=== PATIENT | female | born 1990 | race Caucasian/White ===

== ENCOUNTER 2021-03-09 18:44 | Outpatient (CLI) | payer MEDICAID ==
[~2021-03-09] VITALS: Ht 152.4 cm; Wt 96.8 kg
[2021-03-09 19:00] VITALS: BP 114/71
[2021-03-09 19:21] LABS: BILIRUBIN,URINE NEGATIVE (NEGATIVE); CLARITY,URINE CLOUDY; COLOR,URINE YELLOW; GLUCOSE, URINE (UA) NEGATIVE (NEGATIVE); KETONES,URINE NEGATIVE (NEGATIVE); LEUKOCYTE ESTERASE ,URINE NEGATIVE (NEGATIVE); NITRITE,URINE NEGATIVE (NEGATIVE); PROTEIN,URINE NEGATIVE (NEGATIVE)
[2021-03-09 19:28] LABS: BACTERIA,URINE LARGE /HPF; RBC,URINE 0-2 /HPF
[2021-03-09] MEDS ORDERED: ACETAMINOPHEN 500 MG TAB (TYLENOL) PO ONE (19:45)
[2021-03-09] MEDS ORDERED: LIDOCAINE 1% INJ 20 ML 20 ML VIAL INJ ONE (19:45)
[2021-03-09] MEDS ORDERED: cefTRIAXone 1,000 MG VIAL IM ONE (19:45)
[2021-03-09] MEDS ORDERED: ACET-2267 PO (19:50)
[2021-03-09] MEDS ORDERED: PREN-142 PO (19:50)
--- NOTE | 2021-03-10 08:12 | Physician Query-Final Dx ---
Clinic Account Progress/Dx Physician Query: Please give diagnosis Please include # weeks gestation Date of Service Mar 09, 2021 at 18:44 DIVINA HUERTAS Mar 10, 2021 08:12
== END 2021-03-09 20:07 | disposition home or self-care (01) ==
LOC: WSo 18:44 → LDRP 18:45 → WSo 20:07
PROVIDERS: ATTEND Family Medicine
DX: O26.892 Other specified pregnancy related conditions, second trimester (principal); R10.9 Unspecified abdominal pain; Z3A.21 21 weeks gestation of pregnancy
CPT/HCPCS: 81000; 87088

== ENCOUNTER 2021-05-29 07:37 | Outpatient (CLI) | payer MEDICAID ==
[~2021-05-29] VITALS: Ht 152.4 cm; Wt 101.5 kg
[~2021-05-29 07:37] MED LIST: ACET-2267 PO; PREN-142 PO
[2021-05-29 07:52] VITALS: BP 126/67
[2021-05-29 08:41] LABS: BILIRUBIN,URINE NEGATIVE (NEGATIVE); CLARITY,URINE CLEAR; COLOR,URINE YELLOW; GLUCOSE, URINE (UA) NEGATIVE (NEGATIVE); KETONES,URINE NEGATIVE (NEGATIVE); LEUKOCYTE ESTERASE ,URINE NEGATIVE (NEGATIVE); NITRITE,URINE NEGATIVE (NEGATIVE); PROTEIN,URINE NEGATIVE (NEGATIVE)
[2021-05-29 08:52] LABS: BACTERIA,URINE MODERATE /HPF; RBC,URINE RARE /HPF
--- NOTE | 2021-05-30 08:21 | Physician Query-Final Dx ---
ALEKSANDAR,05/30/21 0821: Clinic Account Progress/Dx Physician Query: Please give diagnosis Please include # weeks gestation Date of Service May 29, 2021 at 07:37 GOPAL JONES MD 05/30/21 1500: Clinic Account Progress/Dx DIAGNOSIS: Diagnosis 32 weeks gestation Vaginal pain in ALEKSANDAR,MayMay 30, 2021 08:21 GOPAL JONES MD May 30, 2021 15:00
== END 2021-05-29 10:06 | disposition home or self-care (01) ==
LOC: WSo 07:37 → LDRP 07:39 → WSo 10:06
PROVIDERS: ATTEND Family Medicine
DX: O26.893 Other specified pregnancy related conditions, third trimester (principal); R10.2 Pelvic and perineal pain; Z3A.32 32 weeks gestation of pregnancy
CPT/HCPCS: 81000; 99213

== ENCOUNTER 2021-06-30 05:18 | Outpatient (CLI) | payer MEDICAID ==
[~2021-06-30] VITALS: Ht 152.4 cm; Wt 107.0 kg
[2021-06-30 05:43] VITALS: BP 154/68
[2021-06-30 05:44] VITALS: BP 154/68
[2021-06-30 06:03] LABS: BILIRUBIN,URINE NEGATIVE (NEGATIVE); CLARITY,URINE SL CLOUDY; COLOR,URINE YELLOW; GLUCOSE, URINE (UA) NEGATIVE (NEGATIVE); KETONES,URINE NEGATIVE (NEGATIVE); LEUKOCYTE ESTERASE ,URINE NEGATIVE (NEGATIVE); NITRITE,URINE NEGATIVE (NEGATIVE); PROTEIN,URINE TRACE (NEGATIVE)
[2021-06-30] MEDS ORDERED: D5 LR IV SOLUTION 1,000 ML IV SCH (06:15)
[2021-06-30 06:19] LABS: BACTERIA,URINE MODERATE /HPF; WBC,URINE RARE /HPF
[2021-06-30] MEDS ORDERED: D5 LR IV SOLUTION 1,000 ML IV ONE (06:20)
[2021-06-30] MEDS ORDERED: CEPH500T PO (07:34)
--- NOTE | 2021-07-01 08:19 | Physician Query-Final Dx ---
Clinic Account Progress/Dx Physician Query: Please give diagnosis Please include # weeks gestation Date of Service Jun 30, 2021 at 05:18 ,MayJul 01, 2021 08:19
== END 2021-06-30 07:55 | disposition home or self-care (01) ==
LOC: WSo 05:18 → LDRP 05:18 → WSo 07:55
PROVIDERS: ATTEND Obstetrics & Gynecology
DX: O62.9 Abnormality of forces of labor, unspecified (principal); Z3A.37 37 weeks gestation of pregnancy
CPT/HCPCS: 81000; 87088; 96360; 99213

== ENCOUNTER 2021-07-03 16:58 | Inpatient (IN) | payer MEDICAID ==
[~2021-07-03] VITALS: Ht 152.4 cm; Wt 106.8 kg
[2021-07-03] VITALS (10 sets, daily range): BP systolic 96–133; BP diastolic 47–76
[~2021-07-03 16:58] MED LIST changes: +CEPH500T PO
[2021-07-03] MEDS ORDERED: METOCLOPRAMIDE INJ 10 MG/2 ML (REGLAN) ONE (17:22)
[2021-07-03] MEDS ORDERED: FAMOTIDINE 20MG/2ML IV (PEPCID) ONE (17:22)
[2021-07-03] MEDS ORDERED: CITRIC ACID/SOB CIT (BICITRA) 30 ML UDC ONE (17:22)
[2021-07-03] MEDS ORDERED: CATHETER FLUSH 10 ML SYR IV PRN (17:30)
[2021-07-03] MEDS ORDERED: METOCLOPRAMIDE INJ 10 MG/2 ML (REGLAN) IV ONE (17:30)
[2021-07-03] MEDS ORDERED: LACTATED RINGERS 1,000 ML IV PRN ×2 (17:30)
[2021-07-03] MEDS ORDERED: FAMOTIDINE 20MG/2ML IV (PEPCID) IV ONE (17:30)
[2021-07-03] MEDS ORDERED: CITRIC ACID/SOB CIT (BICITRA) 30 ML UDC PO ONE (17:30)
[2021-07-03] MEDS ORDERED: CLINDAMYCIN 900 MG/50 ML IVPB 50 ML IV ONE ×2 (17:39→17:45)
[2021-07-03 17:42] LABS: BASOPHILS % (AUTO) 0 % (0-10); EOSINOPHILS % (AUTO) 0 % (0-10); HEMATOCRIT 30 % (35-52); LYMPHOCYTES # (AUTO) 1.3 10^3/uL (1.0-4.0); LYMPHOCYTES % (AUTO) 18 % (12-44); MEAN CORPUSCULAR HEMOGLOBIN 29 pg (25-34); MEAN CORPUSCULAR HGB CONC 33 g/dL (32-36); MEAN CORPUSCULAR VOLUME 87 fL (80-99); MEAN PLATELET VOLUME 13.4 fL (9.0-12.2); MONOCYTES # (AUTO) 0.5 10^3/uL (0.0-1.0); MONOCYTES % (AUTO) 6 % (0-12); NEUTROPHILS # (AUTO) 5.4 10^3/uL (1.8-7.8); NEUTROPHILS % (AUTO) 75 % (42-75); PLATELET COUNT 148 10^3/uL (130-400); WHITE BLOOD COUNT 7.2 10^3/uL (4.3-11.0)
[2021-07-03] MEDS ORDERED: fentaNYL INJ 100 MCG/2 ML AMP ONE (17:58)
[2021-07-03] MEDS ORDERED: OXYTOCIN PRE-MIX DRIP 1,000 ML IV ONE (17:58)
--- NOTE | 2021-07-03 18:08 | History & Physical-OB ---
OB - Chief Complaint & HPI Date/Time Date of Admission: Date of Admission: Jul 03, 2021 at 17:38 Date seen by a Provider: Jul 03, 2021 Time Seen by a Provider: 17:45 Chief Complaint/History OB-Reason for Admission/Chief: Rupture of Membranes Hx : 4 Hx Para: 2 Expected Date of Delivery: Jul 19, 2021 Gestational Age in Weeks: 37 Gestational Age in Days: 5 Other reason for admission: This is a patient of Dr. Du. she is at 37 5/7 weeks with history of previous section. She had ROM at home at 1630. Reports large gush of fluid that was blood tinged and has passed a few clots since that time. She does not appear to be in labor. Cervix 2 cm dilated. No known history of previa, but does report previous episode of bleeding earlier in . Reports previous vaginal delivery and then CS. She states she doesn't know why she had a CS. States she "passed out", so a CS was done. This has been otherwise uncomplicated. Admission Nurse Assessment Rev: Yes History of Labs AB - VDRL NR HBsAg - HIV - Rub I GBS ? Reports history of PCN allergy, ceclor allergy (though she was on keflex in early ) and Sulfa allergy Allergies and Home Medications Allergies Coded Allergies: Penicillins (Verified Allergy, Severe, Anaphylaxis, 03/09/21) Sulfa (Sulfonamide Antibiotics) (Verified Allergy, Intermediate, Rash, 03/09/21) cefaclor (Verified Allergy, Intermediate, Rash, 03/09/21) Patient Home Medication List Home Medication List Reviewed: Yes Acetaminophen (Tylenol Extra Strength) 500 Mg Tablet, 500 MG PO PRN, (Reported) Entered as Reported by: REBECCA ABERNATHY on 03/09/211949 Cephalexin (Cephalexin) 500 Mg Tablet, 500 MG PO TID Prescribed by: SAAD DOMÍNGUEZ on 06/30/21 0734 Vit No.124/Iron/FA ( Vitamin Tablet) 1 Each Tablet, 1 EACH PO DAILY, (Reported) Entered as Reported by: REBECCA ABERNATHY on 03/09/211949 OB - History Hx of Present Ultrasounds: Normal mid trimester US Obstetrical Complications: None Medical Complications: None Information Induced Hypertension: No Maternal Gestational Diabetes: No Hemorrhage: No Obstetrical History Hx : 4 Hx Para: 2 Hx # Term Pregnancies: 2 Hx # Pregnancies: 0 Number of Living Children: 2 Hx Total # of Abortions (Spona: 1 Hx Multiple Gestation: No Hx Ectopic : No Hx Stillbirth: No Hx Complication: No Hx Induced Hypertens: No Hx Maternal Gestational Diabet: No Hx Hemorrhage: No (unsure. Thinks she may have had a transfusion after her first delivery,) Delivery History Hx Dystocia: No Hx Forceps Assisted Delivery: No Hx Vacuum Extraction Assisted: No Hx Placenta Abnormality: No Hx Distress: No Hx Large For Gestational Age I: No Hx Small for Gestational Age I: No Hx Section: Yes Hx Vaginal Delivery Post C-Sec: No Patient Past Medical History NC Social History/Family History 2nd Hand Smoke Exposure: No Immunizations Influenza Vaccine Up-to-Date: Yes; Up-to-Date Hepatitis A: Yes Hepatitis B: Yes Rubella: immune RPR/VDRL: Negative GBS Status: Unknown HBsAG: Negative OB - Admission Exam Physical Exam Heart: Rhythm Normal Lungs: Clear Abdomen: Gravid Extremities: Normal Reflexes: Normal Cervical Dilatation: 2cm Membranes: Ruptured Amniotic Fluid: Other (bloody) Heart Rate: 130's Accelerations: No Accelerations Decelerations: No Decelerations Short Term Variability: Present Laborer Cutting Tool Variability: Average (6-25) Contractions on Admission: None Labs Laboratory Tests Test 07/03/21 17:10 07/03/21 17:24 Range/Units Membranes Rupture POSITIVE White Blood Count 7.2 4.3-11.0 10^3/uL Red Blood Count 3.50 L 3.80-5.11 10^6/uL Hemoglobin 10.0 L 11.5-16.0 g/dL Hematocrit 30 L 35-52 % Mean Corpuscular Volume 87 80-99 fL Mean Corpuscular Hemoglobin 29 25-34 pg Mean Corpuscular Hemoglobin Concent 33 32-36 g/dL Red Cell Distribution Width 13.0 10.0-14.5 % Platelet Count 148 130-400 10^3/uL Mean Platelet Volume 13.4 H 9.0-12.2 fL Immature Granulocyte % (Auto) 0 % Neutrophils (%) (Auto) 75 42-75 % Lymphocytes (%) (Auto) 18 12-44 % Monocytes (%) (Auto) 6 0-12 % Eosinophils (%) (Auto) 0 0-10 % Basophils (%) (Auto) 0 0-10 % Neutrophils # (Auto) 5.4 1.8-7.8 10^3/uL Lymphocytes # (Auto) 1.3 1.0-4.0 10^3/uL Monocytes # (Auto) 0.5 0.0-1.0 10^3/uL Eosinophils # (Auto) 0.0 0.0-0.3 10^3/uL Basophils # (Auto) 0.0 0.0-0.1 10^3/uL Immature Granulocyte # (Auto) 0.0 0.0-0.1 10^3/uL Percent Immature Platelet Fraction 13.9 H 0.0-7.6 % OB - Assessment/Plan/Diagnosis Assessment Assessment: section, rupture of membranes, vaginal bleeding Admission Dx section 37 week Rupture of membranes third trimester bleeding Admission Status: Inpatient Order (span 2 midnights) Reason for Inpatient Admission: section Plan Plan: Section (Plan repeat section. Risk of bleeding, infection, injjry to bowel, bladder, ureter, surrounding tissue, fetus. Risk of anesthesia, DVT,PE. PAtient understands risk and has signed appropriate consents. will use clindamycin as she has PCN allergy and possible cephalosporin allergy. SCDs will be used. ) WHITNEY RAY DO Jul 03, 2021 18:08
[2021-07-03] MEDS ORDERED: PHENYLEPHRINE 100 MCG/ML 10 ML (ANESTHESIA) SYR ONE (18:41)
[2021-07-03] MEDS ORDERED: BUPIVACAINE 0.25% 30 ML (SENSORCAINE) VIAL ONE (18:45)
--- NOTE | 2021-07-03 19:11 | Cesarean Section Operative ---
Procedure Procedure Note Pre-operative Diagnosis: Jazmin Willis is a 31 /Para 4 / 2,Gestational Age 37 5/7 weeks, history of previous section with ROM, third trimester bleeding Post-operative Diagnosis: same, placental abruption Procedure: Repeat low transverse section Physician: WHITNEY RAY Car Dropper: Yemi Du MD special education assistant necessary to retract vital anatomic structures. Estimated blood loss: 500 mL Disposition: stable Findings: Viable male , Apgars 8/9, weight 7#13 ounces, intact placenta with area of abruption noted, 3vc, normal appearing uterus, tubes, and ovaries. Nuchal cord x 1 reduced Indications:Jazmin Willis is a 31 /Para 4 / 2,Gestational Age 37 5/7 weeks, history of previous section with ROM, third trimester bleeding, presenting for repeat . Procedure Details: The patient was seen in pre-op and the procedure was discussed with the patient in full, including the risks, benefits, and alternatives. All questions were answered. The patient was taken to the operating room and a time out was performed, verifying patient and procedure. After spinal anesthesia was placed by our anesthesia colleagues, the patient was placed in the dorsal supine with leftward tilt for uterine displacement.~ Her abdomen was then prepped and draped in the typical sterile fashion. A Pfannenstiel skin incision was made using a scalpel and carried down through the underlying fascia. The fascia was incised in the midline and tented up using Khoa clamps. On both the inferior and superior fascia side the rectus muscle was dissected off bluntly and sharply using Brown scissors. The peritoneum was identified and entered bluntly in the midline. This was then stretched laterally using manual strength. After entering the abdominal cavity and confirming lack of intraperitoneal adhesions, an extra large Can retractor was placed and the lower uterine segment was visualized. There was a small window noted on the uterus. A scalpel was utilized to make a low transverse uterine incision. Amniotomy was performed with an Allis clamp with return of bloody fluid. The 's head was grasped and brought to the level of the incision. Fundal pressure was applied and was delivered without difficulty. Mouth and nares were suctioned with bulb suction. After the umbilical cord was clamped and cut, the was handed off to the pediatric staff. A sample of cord blood was then obtained. The placenta was delivered intact via uterine massage. The uterus was cleared of all clots and debris. There was clot on the placenta suggestion an abruption had occurred. The uterine incision was closed using 0 Vicryl in a running locked fashion. A second imbricated layer was placed using 0 Vicryl in a running fashion as well. The bilateral tubes and ovaries appeared normal. The abdominal gutters were cleared of all clots and debris. A final check of the uterine incision showed it to be hemostatic. The peritoneum was closed using 3-0 Vicryl in a running fashion. The fascia was closed with 0 PDS in a running fashion. The subcutaneous space was hemostatic, and irrigated. The subcutaneous space was closed with 3-0 Vicryl in several single interrupted stitches. The skin was then closed using 4-0 Monocryl in a running subcuticular fashion. The skin edges were reapproximated together and were hemostatic. A pressure dressing was applied. All sponge, lap and needle counts were correct at the end of the procedure per nursing. Vitals - Labs Labs Laboratory Tests 07/03/21 17:10: Membranes Rupture POSITIVE 07/03/21 17:24: White Blood Count 7.2, Red Blood Count 3.50L, Hemoglobin 10.0L, Hematocrit 30L, Mean Corpuscular Volume 87, Mean Corpuscular Hemoglobin 29, Mean Corpuscular Hemoglobin Concent 33, Red Cell Distribution Width 13.0, Platelet Count 148, Mean Platelet Volume 13.4H, Immature Granulocyte % (Auto) 0, Neutrophils (%) (Auto) 75, Lymphocytes (%) (Auto) 18, Monocytes (%) (Auto) 6, Eosinophils (%) (Auto) 0, Basophils (%) (Auto) 0, Neutrophils # (Auto) 5.4, Lymphocytes # (Auto) 1.3, Monocytes # (Auto) 0.5, Eosinophils # (Auto) 0.0, Basophils # (Auto) 0.0, Immature Granulocyte # (Auto) 0.0, Percent Immature Platelet Fraction 13.9H WHITNEY RAY DO Jul 03, 2021 19:10
[2021-07-03] MEDS ORDERED: MEASLES,MUMPS,RUBELLA 1 EA INJ SC SCH (19:15)
[2021-07-03] MEDS ORDERED: NALOXONE 0.4 MG/ML 1 ML (NARCAN) VIAL IV PRN (19:15)
[2021-07-03] MEDS ORDERED: morphine INJ 4 MG/ML 1 ML (VIAL/SYRINGE) IV PRN (19:15)
[2021-07-03] MEDS ORDERED: OXYTOCIN PRE-MIX DRIP 500 ML IV SCH (19:15)
[2021-07-03] MEDS ORDERED: TETANUS,DIPTH,PERTUSS P/F (BOOSTRIX) 0.5 ML VIAL IM SCH (19:15)
[2021-07-03] MEDS ORDERED: OXYTOCIN PRE-MIX DRIP 500 ML IV ONE (20:23)
[2021-07-03] MEDS ORDERED: KETOROLAC 30 MG/ML VIAL ONE (20:24)
[2021-07-03] MEDS: KETOROLAC 30 MG/ML VIAL IV SCH (20:30)
[2021-07-03] MEDS: ACETAMINOPHEN 500 MG TAB (TYLENOL) PO SCH (23:34)
[2021-07-03] MEDS: DOCUSATE SODIUM 100 MG (COLACE) CAP PO SCH (23:34)
[2021-07-04] MEDS: KETOROLAC 30 MG/ML VIAL IV SCH ×3 (02:23→18:00)
[2021-07-04 04:20] VITALS: BP 122/64
[2021-07-04 06:27] LABS: BASOPHILS % (AUTO) 0 % (0-10); EOSINOPHILS # (AUTO) 0.1 10^3/uL (0.0-0.3); EOSINOPHILS % (AUTO) 1 % (0-10); HEMOGLOBIN 9.4 g/dL (11.5-16.0); LYMPHOCYTES # (AUTO) 1.1 10^3/uL (1.0-4.0); MONOCYTES # (AUTO) 0.6 10^3/uL (0.0-1.0)
[2021-07-04 06:29] LABS: HEMATOCRIT 29 % (35-52); LYMPHOCYTES % (AUTO) 16 % (12-44); MEAN CORPUSCULAR HEMOGLOBIN 28 pg (25-34); MEAN CORPUSCULAR HGB CONC 32 g/dL (32-36); MEAN CORPUSCULAR VOLUME 88 fL (80-99); MONOCYTES % (AUTO) 9 % (0-12); NEUTROPHILS # (AUTO) 5.2 10^3/uL (1.8-7.8); NEUTROPHILS % (AUTO) 74 % (42-75); PLATELET COUNT 127 10^3/uL (130-400)
[2021-07-04] MEDS: ACETAMINOPHEN 500 MG TAB (TYLENOL) PO SCH ×3 (06:52→23:31)
[2021-07-04 08:19] VITALS: BP 132/65
[2021-07-04] MEDS ORDERED: IBUPROFEN 600 MG (MOTRIN) TAB PO ONE ×3 (08:41→20:25)
[2021-07-04] MEDS: FERROUS SULF 325 MG (IRON) TAB PO SCH (08:49)
[2021-07-04] MEDS: IBUPROFEN 600 MG (MOTRIN) TAB PO SCH ×3 (08:49→20:40)
[2021-07-04] MEDS: DOCUSATE SODIUM 100 MG (COLACE) CAP PO SCH ×2 (08:49→20:40)
--- NOTE | 2021-07-04 10:06 | Anesthesia-Regional Post-Op ---
Regional Patient Condition Mental Status: Alert, Oriented x3 Circulation: Same as Pre-Op Headache: Absent Sensation: Full Recovery Motor Block: Absent Post Op Complications Complications None Follow Up Care/Instructions Patient Instructions None needed. Anesthesia/Patient Condition Patient is doing well, no complaints, stable vital signs, no apparent adverse anesthesia problems. No complications reported per nursing. CAREN CENTENO CRNA Jul 04, 2021 10:06
--- NOTE | 2021-07-04 10:19 | Postpartum Progress Note ---
Note Note Day # 1 Subjective: Patient is without complaints. Ambulating, voiding. Tolerating a regular diet without nausea or vomiting. Normal lochia. Pain is well controlled with oral pain medications. Objective: Physical Exam: General - Alert and oriented, no apparent distress Abdomen - Soft, appropriately tender to palpation, non-distended, fundus firm at umbilicus; incision c/d/i Extremities - no edema, negative Nichole's bilaterally Assessment: Post- day # 1, status post PLTCS. Recovering well, hemodynamically stable Acute blood loss anemia Plan: Routine care. Encourage breast feeding. Encourage ambulation. Ferrous sulfate supplementation. Plan for discharge tomorrow, 07/05/21 Vitals - Labs Vital Signs - I&O Vital Signs Date Time Temp Pulse Resp B/P (MAP) Pulse Ox O2 Delivery O2 Flow Rate FiO2 07/04/21 08:19 36.4 95 18 132/65 (87) 98 Room Air 07/04/21 04:20 36.1 91 18 122/64 (83) 98 Room Air 07/03/21 23:55 36.3 95 18 133/62 (85) 98 Room Air 07/03/21 20:31 35.9 87 18 133/67 (89) 97 Room Air 07/03/21 20:05 36.4 20 120/68 (85) 98 Room Air 07/03/21 20:03 Room Air 07/03/21 19:59 36.4 20 96/47 (63) 98 Room Air 07/03/21 19:50 Room Air 07/03/21 19:49 14 117/53 (74) 98 Room Air 07/03/21 19:44 Room Air 07/03/21 19:38 19 110/76 (87) 97 Room Air 07/03/21 19:30 10 108/72 (84) 98 Room Air 07/03/21 19:30 Room Air 07/03/21 19:20 24 105/56 (72) 98 Room Air 07/03/21 19:14 Room Air 07/03/21 19:14 37.1 20 109/64 (79) 97 Room Air 07/03/21 19:10 36.5 97 18 131/71 (91) 98 Room Air I & O 07/04/21 07:00 Intake Total 550 ml Output Total 1250 ml Balance -700 ml Labs Laboratory Tests 07/03/21 17:10: Membranes Rupture POSITIVE 07/03/21 17:24: White Blood Count 7.2, Red Blood Count 3.50L, Hemoglobin 10.0L, Hematocrit 30L, Mean Corpuscular Volume 87, Mean Corpuscular Hemoglobin 29, Mean Corpuscular Hemoglobin Concent 33, Red Cell Distribution Width 13.0, Platelet Count 148, Mean Platelet Volume 13.4H, Immature Granulocyte % (Auto) 0, Neutrophils (%) (Auto) 75, Lymphocytes (%) (Auto) 18, Monocytes (%) (Auto) 6, Eosinophils (%) (Auto) 0, Basophils (%) (Auto) 0, Neutrophils # (Auto) 5.4, Lymphocytes # (Auto) 1.3, Monocytes # (Auto) 0.5, Eosinophils # (Auto) 0.0, Basophils # (Auto) 0.0, Immature Granulocyte # (Auto) 0.0, Percent Immature Platelet Fraction 13.9H 07/04/21 05:50: White Blood Count 7.0, Red Blood Count 3.31L, Hemoglobin 9.4L, Hematocrit 29L, Mean Corpuscular Volume 88, Mean Corpuscular Hemoglobin 28, Mean Corpuscular Hemoglobin Concent 32, Red Cell Distribution Width 13.0, Platelet Count 127L, Mean Platelet Volume 13.0H, Immature Granulocyte % (Auto) 0, Neutrophils (%) (Auto) 74, Lymphocytes (%) (Auto) 16, Monocytes (%) (Auto) 9, Eosinophils (%) (Auto) 1, Basophils (%) (Auto) 0, Neutrophils # (Auto) 5.2, Lymphocytes # (Auto) 1.1, Monocytes # (Auto) 0.6, Eosinophils # (Auto) 0.1, Basophils # (Auto) 0.0, Immature Granulocyte # (Auto) 0.0, Percent Immature Platelet Fraction 13.3H KENN AVILA APRN Jul 04, 2021 10:19
[2021-07-04 12:00] VITALS: BP 142/71
[2021-07-04] MEDS: CATHETER FLUSH 10 ML SYR IV SCH ×3 (14:00→15:00)
[2021-07-04 15:08] VITALS: BP 125/60
[2021-07-04 18:15] VITALS: BP 133/75
[2021-07-04 20:40] VITALS: BP 123/65
[2021-07-05 02:23] VITALS: BP 129/76
[2021-07-05] MEDS: IBUPROFEN 600 MG (MOTRIN) TAB PO SCH ×2 (02:24→09:08)
[2021-07-05 09:09] VITALS: BP 145/82
[2021-07-05] MEDS: FERROUS SULF 325 MG (IRON) TAB PO SCH (09:09)
[2021-07-05] MEDS: ACETAMINOPHEN 500 MG TAB (TYLENOL) PO SCH (09:09)
[2021-07-05] MEDS: DOCUSATE SODIUM 100 MG (COLACE) CAP PO SCH (09:09)
--- NOTE | 2021-07-05 10:00 | Postpartum Progress Note ---
Post Op Post-operative Day #2 s/p RLTCS, abruption, ROM Subjective: Patient is without complaints. Ambulating, voiding after lambert removed. Tolerating a regular diet without nausea or vomiting. Normal lochia. Pain is well controlled with oral pain medications. Passing flatus. breast feeding Objective: 07/05/21 02:23 Temp 36.1 Pulse 82 Resp 18 B/P (MAP) 129/76 (93) Pulse Ox 100 O2 Delivery Room Air 07/04/21 23:59 Intake Total 1100 ml Output Total 600 ml Balance 500 ml Physical Exam: General - Alert and oriented, no apparent distress Abdomen - Soft, appropriately tender to palpation, non-distended, fundus firm at umbilicus Incision - clean, dry and intact; no erythema or induration, no drainage Extremities - no edema, negative Nichole's bilaterally Assessment: 1. post-operative day # 2, status post RLTCS. Recovering well, hemodynamically stable Plan: Routine post-operative care. Encourage breast feeding. Encourage ambulation. VTE prophylaxis: SCDs. Ferrous sulfate supplementation. Plan for discharge today Vitals - Labs Vital Signs - I&O Vital Signs Date Time Temp Pulse Resp B/P (MAP) Pulse Ox O2 Delivery O2 Flow Rate FiO2 07/05/21 02:23 36.1 82 18 129/76 (93) 100 Room Air 07/04/21 20:40 36.0 94 18 123/65 (84) 97 07/04/21 18:15 36.4 93 18 133/75 (94) 98 Room Air 07/04/21 15:08 36.4 94 18 125/60 (81) 99 Room Air 07/04/21 12:00 36.0 85 18 142/71 (94) 97 Room Air I & O 07/05/21 07:00 Intake Total 1100 ml Output Total 600 ml Balance 500 ml WHITNEY RAY DO Jul 05, 2021 10:00
[2021-07-05] MEDS ORDERED: FERR325T24 PO ×2 (10:03→10:24)
[2021-07-05] MEDS ORDERED: ACET-93 PO ×2 (10:03→10:24)
[2021-07-05] MEDS ORDERED: IBUP-844 PO ×2 (10:03→10:24)
[2021-07-05] MEDS ORDERED: DOCU100C37 PO ×2 (10:03→10:24)
--- NOTE | 2021-07-05 10:04 | Discharge Inst-Women's Service ---
Discharge Inst-Women's Serv Depart Medication/Instructions New, Converted or Re-Newed RX: Transmitted to Pharmacy Final Diagnosis previous cesareans section 37 week gestation rupture of membranes third trimester bleeding placental abruption acute blood loss anemia Problems Reviewed?: Yes Consults/Follow Up Additional Follow Up: Yes (1 week for incision check with [facility]; 6 weeks with [facility]) Activity Activity: Activity as Tolerated Driving Instructions: No Driving for 1 Week NO SMOKING: NO SMOKING Nothing Inside Vagina: No Douching, No [place], No Tampons Diet Discharge Diet: No Restrictions Symptoms to Report to : Swelling Increased, Bleeding Excessive, Pain Increased, Fever Over 101 Degrees F, Vaginal Bleeding Increase, Cramps in Feet or Legs, Vaginal Discharge Foul For Any Problems or Questions: Contact Your Physician Skin/Wound Care Infection Signs and Symptoms: Increased Redness, Foul Odor of Wound, Increased Drainage, Skin Itchy or Has a Rash, Increased Swelling, Temperature Above 101 F Operative Area Clean and Dry: Keep Incision Clean/Dry Stitches/Vida/Dermabond: Dermabond Bathing Instructions: WHITNEY Shukla DO Jul 05, 2021 10:04
--- NOTE | 2021-07-05 10:25 | Short Stay Summary ---
Discharge Summary Hospital Course Hospital Course Date of Admission: Jul 03, 2021 at 17:38 Admission Diagnosis : Family Physician/Provider: Shane Du MD Date of Discharge: 07/05/21 Discharge Diagnosis: [ ] Hospital Course: [ ] Labs and Pending Lab Test: Home Meds Active Docusate Sodium 100 Mg Capsule 100 Mg PO BID Acetaminophen 500 Mg Tablet 1,000 Mg PO Q8HR Ibu (Ibuprofen) 600 Mg Tablet 600 Mg PO Q6HR Ferosul (Ferrous Sulfate) 325 Mg Tablet 325 Mg PO DAILY@0700 Discharge Instructions Discharge Diet: No Restrictions Discharge Physical Examination Allergies: Coded Allergies: Penicillins (Verified Allergy, Severe, Anaphylaxis, 03/09/21) Sulfa (Sulfonamide Antibiotics) (Verified Allergy, Intermediate, Rash, 03/09/21) cefaclor (Verified Allergy, Intermediate, Rash, 03/09/21) Discharge Summary Date of Admission Jul 03, 2021 at 17:38 Date of Discharge Discharge Date: Jul 05, 2021 WHITNEY RAY DO Jul 05, 2021 10:25
== END 2021-07-05 11:50 | disposition home or self-care (01) | DRG 786 ==
LOC: WSo 16:58 → LDRP 16:58 → WSo 17:38 → WS 20:10
PROVIDERS: ADMIT Family Medicine; ATTEND Family Medicine
PROC: 10D00Z1 Extraction of Products of Conception, Low, Open Approach (ICD-10-PCS; principal; 2021-07-03 18:12)
DX: O34.211 Maternal care for low transverse scar from previous cesarean delivery (principal); O45.93 Premature separation of placenta, unspecified, third trimester; D62 Acute posthemorrhagic anemia; Z3A.37 37 weeks gestation of pregnancy; Z37.0 Single live birth; O90.81 Anemia of the puerperium
CPT/HCPCS: 36415; 84112; 85025; 85027; 86850; 86900; 86901; 94664; 99212